=== PATIENT | female | born 1945 | race Caucasian/White ===

== ENCOUNTER 2016-04-08 11:10 | Outpatient (CLI) | payer MEDICARE, OTHER ==
[~2016-04-08] VITALS: Ht 162.6 cm; Wt 88.6 kg
--- NOTE | ~2016-04-08 | HEMODYNAMI ---
PATIENT:BARRIE SMITH MEDICAL RECORD: [id number] : 43 LOCATION:[facility] ADMISSION DATE: 04/08/16 Generatedon:04/08/201613:37 Patient name: BARRIE SMITH Patient #: [id number] SSN: [id number] : 1945 Date of study: 04/08/2016 Page: Of Hemodynamic Procedure Report Patient Data Patient Demographics Procedure consent was obtained First Name: BARRIE Gender: Female Last Name: LUIS : 1945 Middle Initial: W Age: 70 year(s) Patient #: [id number] Race: SSN: [id number] Additional ID: [id number] Contact details Address: [address] [place] [address] State: [place] City: [place] Zip code: [address] Past Medical History Allergies: No known allergies Admission Admission Data Admission Date: 04/08/2016 Admission Time: 11:10 Arrival Date: 04/08/2016 Arrival Time: 13:00 Admit Source: Other Insurance Payor: Medicare Height (in.): 64 BSA: 1.94 (m2) Height (cm.): 162.56 BMI: 33.47 (kg/m2) Weight (lbs.): 195 Weight (kg.): 88.45 Lab Results Lab Result Date: 04/08/2016 Lab Result Time: 0:00 Biochemistry Name Units Result Min Max BUN mg/dl 25 --(----)-* 7 18 Creatinine mg/dl 0.9 --(-*--)-- 0.6 1.3 CBC Name Units Result Min Max Hemoglobin g/dl 14.3 --(*---)-- 13.5 17.5 Procedure Procedure Types Cath Procedure Diagnostic Procedure LHC LH w/Coronaries Procedure Description Procedure Date Procedure Date: 04/08/2016 Procedure Start Time: 13:20 Procedure End Time: 13:33 Procedure Staff Name Function Debi Looney RT Scrub Joao Austin MD Performing Physician Tayla Rubio RN Nurse Levar Cancino RT Monitor Indication Angina Procedure Data Cath Procedure Fluoroscopy Diagnostic fluoroscopy Total fluoroscopy Time: 2.7 time: 2.7 min min Diagnostic fluoroscopy Total fluoroscopy dose: 525 dose: 525 mGy mGy Contrast Material Contrast Material Type Amount (ml) Isovue 370 0 Isovue 300 64 Entry Location Entry Primary Successful Side Size Upsize Upsize Entry Closure Frausto ccessful Closure Location (Fr) 1 (Fr) 2 (Fr) Remarks Device Remarks Radial Right 6 Fr Mechanical artery Short Compression Diagnostic catheters Device Type Used For End Catheter Placement Terumo Optitorque 5Fr LV Angiography Ellis 4.5 catheter Procedure Complications No complications Procedure Medications Medication Administration Route Dosage Oxygen NC 2 l/min Heparin Flush Bag added to field 2 bags (1000units/500ml NS) Lidocaine 2% added to field 20 Radial Cocktail added to field 1 syringe (Verapomil 2mg/Nitro 400mcg/Heparin 1500units) Benadryl I.V. 50 mg Versed I.V. 1 mg Fentanyl I.V. 50 mcg Versed I.V. 1 mg Fentanyl I.V. 50 mcg Radial Cocktail I.A. 1 syringe (Verapomil 2mg/Nitro 400mcg/Heparin 1500units) Hemodynamics Rest BSA: 1.94 (m2) HGB: 14.3 (g/dl) O2 Consumption: Estimated: 185.88 (ml/min) O2 Co nsumption indexed: Estimated:95.81 (ml/min/m) Heart Rate: 80 (bpm) Pressure Samples Time Site Value (mmHg) Purpose Heart Use Rate(bpm) 13:24 LV 80/-24,-13 EDP 86 13:25 AO 63/35(45) Pullback 63 Gradients Valve Time Site Site 2 Mean SEP/DFP Peak To Heart Use 1 (mmHg) (sec/min) Peak Rate (mmHg) (bpm) Aortic 13:25 LV AO 31 18 63 63/35(45) Calculations Valve P-P Mean Valve Index Valve Source Name Gradient Area Flow (cm2) Aortic 31 31 Snapshots Pre Cath Intra NCS Post Cath Vital Signs Time Heart Resp SPO2 NIBP (mmHg) Rhythm Pain Sedation Rate (ipm) (%) Status Level (bpm) 13:08:02 81 19 99 120/73(92) NSR 0 (11) 10(A) , No pain 13:12:12 80 18 98 129/80(103) NSR 0 (11) 10(A) , No pain 13:16:24 80 16 98 120/74(93) NSR 0 (11) 10(A) , No pain 13:20:34 81 16 98 108/64(82) NSR 0 (11) 9(A) , No pain 13:24:27 95 16 98 112/96(107) NSR 0 (11) 9(A) , No pain 13:28:39 80 16 96 93/61(84) NSR 0 (11) 9(A) , No pain 13:32:41 80 16 95 112/67(85) NSR 0 (11) 9(A) , No pain Medications Time Medication Route Dose Verified Delivered Reason Notes Effectiveness by by 13:08:18 Oxygen NC 2 l/min Joao Tayla Per Norman Rubio RN physician 13:08:24 Heparin Flush added 2 bags Joao Joao used for Bag to Norman Austin MD procedure (1000units/500ml field NS) 13:08:31 Lidocaine 2% added 20ml Joao Joao used for to vial Norman Austin MD procedure field 13:08:38 Radial Cocktail added 1 Joao Joao used for (Verapomil to syringe Norman Austin MD procedure 2mg/Nitro field 400mcg/Hepari 13:08:47 Benadryl I.V. 50 mg Joao Tayla Per Norman Rubio RN physician 13:16:10 Versed I.V. 1 mg Joao Tayla for sedation Norman Rubio RN 13:16:16 Fentanyl I.V. 50 mcg Joao Tayla for sedation Norman Rubio RN 13:20:17 Versed I.V. 1 mg Joao Tayla for sedation Norman Rubio RN 13:20:20 Fentanyl I.V. 50 mcg Joao Tayla for sedation Norman Rubio RN 13:22:19 Radial Cocktail I.A. 1 Joao Joao for (Verapomil syringe Norman Austin MD vasodilation 2mg/Nitro 400mcg/Hepari Procedure Log Time Note 12:40:16 Tayla Joanne DAS sent for patient. Start room use. 12:55:46 Arrival Date: 04/08/2016 1:00:00 PM 12:55:52 Insurance Payor : Medicare 12:55:54 Admit Source: Other 12:55:59 Patient Height : 162.56 inches 12:56:17 Patient Weight : 88.45 lbs 12:58:51 Lab Result : Hemoglobin 14.3 g/dl 12:58:51 Lab Result : Creatinine 0.9 mg/dl 12:58:51 Lab Result : BUN 25 mg/dl 12:58:59 Diagnostic Cath Status : Elective 12:59:14 Indication : Angina 12:59:23 Time tracking: Regular hours 12:59:27 Plan of Care:Hemodynamics will remain stable., Cardiac rhythm will remain stable., Comfort level will be maintained., Respiratory function will remain adequate., Patient/ family verbilizes understanding of procedure., Procedure tolerated without complication., Recovers from procedure without complications.. 12:59:32 Warm blankets applied, and oly hugger turned on for patient comfort. 12:59:32 Patient received from Outpatients to [facility] 1 Alert and oriented. Tansferred to table in Supine position. 12:59:33 Correct patient and procedure confirmed by team. 12:59:35 Signed procedure consent form obtained from patient. 12:59:36 ECG and BP/O2 sat monitors applied to patient. 13:06:56 Vital chart was started 13:08:18 Oxygen 2 l/min NC was given by Tayla Rubio RN; Per physician; 13:08:24 Heparin Flush Bag (1000units/500ml NS) 2 bags added to field was given by Joao Austin MD; used for procedure; 13:08:31 Lidocaine 2% 20ml vial added to field was given by Joao Austin MD; used for procedure; 13:08:38 Radial Cocktail (Verapomil 2mg/Nitro 400mcg/Heparin 1500units) 1 syringe added to field was given by Joao uAstin MD; used for procedure; 13:08:47 Benadryl 50 mg I.V. was given by Tayla Rubio RN; Per physician; 13:14:29 Baseline sample Acquired. 13:14:34 Rhythm: sinus rhythm 13:14:35 Full Disclosure recording started 13:14:44 H&P Date Dictated: 03/31/2016 Within 30 days and on chart., H&P Addendum completed by physician on day of procedure. (MUST COMPLETE FOR ALL OUTPATIENTS). 13:14:45 Pre-procedure instructions explained to patient. 13:14:46 Pre-op teaching completed and patient verbalized understanding. 13:14:47 Family in waiting room. 13:14:48 Patient NPO since Midnight. 13:14:54 Patient allergic to No known allergies 13:14:59 Is the patient allergic to Iodine/contrast media? No. 13:15:01 Is patient on blood thinner?No 13:15:08 Patient diabetic? No. 13:15:11 If diabetic: On Metformin? No 13:15:12 ----Pre-sedation anethsthesia assessment.---- 13:15:14 Previous problem with sedation/anesthesia? No ? 13:15:16 Snore? Yes 13:15:18 Sleep apnea? Yes 13:15:19 Deviated septum? No 13:15:21 Opens mouth fully? Yes 13:15:23 Sticks out tongue? Yes 13:15:27 Airway obstruction? No ? 13:15:30 Dentures? No ? 13:15:33 Pre procedure: right dorsailis pedis pulse 1+ Palpable, but thready & weak; easily obliterated 13:15:36 Modified Casey's test Ulnar < 7 seconds 13:15:38 Patient pain scale 0/10 ?. 13:15:43 IV patent on arrival in left forearm with 0.9% NaCl at 10ml/hr. 13:15:46 Lab results completed and on chart. 13:15:49 Right Radial & Right Groin area was prepped with chlora-prep and draped in sterile fashion 13:15:50 Sharps counted by scrub and verified by R.N. 13:15:50 Alarms reviewed by R. N. 13:15:53 Final Timeout: patient, procedure, and site verified with staff and physician. All members of the team are in agreement. 13:15:53 --------ALL STOP TIME OUT------ 13:15:55 Right Radial & Right Groin site verified by team. 13:15:58 Physical assessment completed. ASA score P 2 - A patient with mild systemic disease as per Joao Austin MD. 13:16:04 Sedation plan: IV Moderate Sedation Versed, Fentanyl 13:16:10 Versed 1 mg I.V. was given by Tayla Rubio RN; for sedation; 13:16:12 Use device set Radial Dx 13:16:13 Acist Syringe opened to sterile field. 13:16:14 Terumo 6Fr Slender Glidesheath opened to sterile field. 13:16:14 Bag Decanter opened to sterile field. 13:16:14 Cardinal Cath Pack opened to sterile field. 13:16:15 St Brady 260cm J .035 wire opened to sterile field. 13:16:16 Acist Hand Control opened to sterile field. 13:16:16 Fentanyl 50 mcg I.V. was given by Tayla Rubio RN; for sedation; 13:16:17 Acist Manifold opened to sterile field. 13:16:18 Tegaderm 4 x 4 opened to sterile field. 13:18:24 Zero performed for pressure channel P1 13:19:37 Procedure started. 13:20:17 Versed 1 mg I.V. was given by Tayla Rubio RN; for sedation; 13:20:20 Fentanyl 50 mcg I.V. was given by Tayla Rubio RN; for sedation; 13:20:42 Local anesthetic to right radial artery with Lidocaine 2% by Joao Austin MD.INITIAL ACCESS ONLY 13:20:51 A 6 Fr Short sheath was inserted into the Right Radial artery 13:22:13 A Terumo Optitorque 5Fr Ellis 4.5 catheter was advanced over the wire and used for LV Angiography. 13:22:19 Radial Cocktail (Verapomil 2mg/Nitro 400mcg/Heparin 1500units) 1 syringe I.A. was given by Joao Austin MD; for vasodilation; 13:24:14 LV angiography performed. 13:24:19 LV gram done using DENIS 13:24:20 LV hemodynamics recorded. 13:24:40 EF : 60 % 13:28:21 LCA angiography performed. 13:29:20 RCA angiography performed. 13:30:56 Catheter removed. 13:31:03 Sheath removed intact; hemostasis achieved with Mechanical Compression to the Right Radial artery. 13:31:05 Procedure ended.(Physican Out) 13:31:25 Contrast amount:Isovue 370 0ml. 13:31:27 Contrast amount:Isovue 300 64ml. 13:31:32 Fluoroscopy time 02.70 minutes. 13:31:37 Fluoroscopy dose: 525 mGy 13:31:37 Flurop Dose total: 525 13:31:38 Sharps counted by scrub and verified by R.N. 13:31:40 TR band inflated with 10cc of air. 13:31:41 Insertion/operative site no bleeding no hematoma. 13:31:50 Post right radial artery:stable 13:31:51 Post Procedure Pulses reassessed and unchanged 13:31:56 Post procedure rhythm: sinus rhythm 13:31:57 Post procedure instruction explained to patient.Patient verbalizes understanding. 13:32:21 Procedure and supply charges have been captured, reviewed, submitted and are correct. 13:32:38 Terumo TR Band Standard opened to sterile field. 13:32:45 Procedure Complication : No complications 13:32:47 Vital chart was stopped 13:32:48 See physician's report for complete and final results. 13:32:52 Report given to Post Procedure Room. 13:33:14 Patient transfered to Post Procedure Room with Stretcher. 13:33:16 Full Disclosure recording stopped 13:33:16 Procedure ended. 13:33:22 End room use (Document Last) Device Usage Item Name Manufacture Quantity Catalog Hospital Part Current Minimal Lot# / Number Charge Number Stock Stock Serial# Code Acist Acist 1 69615 616286 409765 745232 20 Syringe [employer] Cardinal Cardinal 1 [id number] 072045 23666 890393 5 Cath Pack Health Bag Microtek 1 2001S 395858 59556 788377 5 [employer] Terumo 6Fr Terumo 1 [id number] 709066 192445 693963 [address] St Brady 1 044010 440158 535085 702765 30 260cm J .035 wire Acist Hand Acist 1 05016 574479 967471 801318 5 Control [employer] Inc Acist Acist 1 86179 814505 020478 417750 5 Manifold [employer] Inc Tegaderm 4 3M 1 [id number] 612285 873634 893987 5 x 4 Terumo Terumo 1 405012 001738 520024 503646 5 Optitorque 5Fr Ellis 4.5 catheter Terumo TR Terumo 1 [id number] 638088 972611 423749 40 Band Standard Signature Audit [place] Stage Time Signature Unsigned Intra-Procedure 04/08/2016 Levar Cancino 1:37:44 PM RT(R) Signatures Monitor : Levar Cancino RT Signature : Date : Time : [facility] [address] [place] [place] [address]
[2016-04-08] MEDS ORDERED: ALEVE220 MG PO (12:09)
[2016-04-08 12:14] LABS: BASOPHILS 0.5 % (0.0-2.0); HEMATOCRIT 43.8 % (36.0-48.0); HEMOGLOBIN 14.3 g/dL (12-16); IMMATURE GRANULOCYTES 0.2 % (0-5); LYMPHOCYTES 16.6 % (15-50); MCH 30.2 pg (26.0-34.0); MCHC 32.6 g/dL (31.0-37.0); MCV 92.6 fL (80.0-100.0); MEAN PLATELET VOLUME 9.1 fL (7.4-10.4); MONOCYTES 7.1 % (2-11); NEUTROPHILS 74.6 % (40-80); PLATELET COUNT 261 10x3/uL (130-400); RBC 4.73 10x6/uL (4.00-5.40); RDW 13.4 % (11.5-14.5); WBC 8.8 10x3/uL (4.8-10.8)
[2016-04-08 12:17] VITALS: BP 127/80; Ht 162.6 cm; Wt 88.6 kg
[2016-04-08 12:26] LABS: ANION GAP 10.8 mmol/L (8-16); CALCIUM 10.1 mg/dL (8.5-10.1); CARBON DIOXIDE 30.7 mmol/L (21.0-32.0); CREATININE - SERUM 0.9 mg/dL (0.6-1.3); POTASSIUM - SERUM 3.5 mmol/L (3.5-5.1)
--- NOTE | 2016-04-08 14:02 | NUR ---
TR BAND TO R/WRIST CDI NO BLEEDING NO HEMATOMA NOTED. VSS WITH HR 76 BP 108/66 CHEST PAIN IS DENIED. NAUSEA IS DENIED WILL MONITOR
--- NOTE | 2016-04-08 14:24 | NUR ---
RESTING QUIETLY WITH NO DISTRESS NOTED VSS TR BAND TO R/WRIST CDI NO BLEEDING NO HEMATOMA NOTED. FAMILY AT BEDSIDE WILL MONITOR
--- NOTE | 2016-04-08 15:05 | NUR ---
SITTING WITH HOB UP 45 DEGREES NO DISTRESS NOTED VSS TR BAND TO R/WRIST CDI FAMILY AT SIDE
--- NOTE | 2016-04-08 15:39 | NUR ---
PIV REMOVED FROM LEFT ARM DRESSING 4 CC AIR REMOVED FROM TR BAND WITH NO BLEEDING NOTED CHEST PAIN DENIED 1550 TR BAND REMOVED WITH DRESSING APPLIED NO BLEEDING NO HEMATOMA NOTED DISCHARGE GONE OVER WITH [facility] AND [facility]
--- NOTE | 2016-04-22 13:15 | OP ---
PATIENT NAME: BARRIE SMITH MEDICAL RECORD: [id number] :43 LOCATION:D.CAT ADMISSION DATE: SURGEON: SHAKEEL CORNELL M.D. DATE OF OPERATION: 04/08/2016 REFERRING PHYSICIAN: Dr. Fuad Rahman at [place], [place]. PROCEDURES PERFORMED: 1. Selective coronary angiography. 2. Left heart catheterization with ventriculogram. INDICATION: A 70-year-old presents with symptoms of accelerating angina. EQUIPMENT USED: A 5-Czech Rayle catheter. TECHNIQUE: A 6-Czech sheath was inserted in retrograde fashion in the right radial artery. Next, selective coronary angiography was performed in standard 5-Czech Rayle catheter. Left heart catheterization was performed using Rayle catheter as well. CORONARY ANATOMY: 1. Left main: Left main trunk is large in caliber. It gives rise to the LAD and circumflex. There is no obstruction. 2. LAD: This is a small caliber vessel, which does not reach the apex. The proximal vessel has a smooth 40% stenosis. The vessel appears to be small, less than 2 mm in diameter. 3. Circumflex: This vessel is large in caliber. It supplies a large lateral branch in the proximal segment. The circumflex and lateral branch are smooth-walled and angiographically normal. 4. Right coronary: This vessel is quite large and dominant. The posterolateral branch in PDA encompass the apex. This vessel is smooth-walled are angiographically normal. 5. Left ventricle: Left ventricle is normal in size and function. No wall motion abnormalities are seen. Estimated ejection fraction is 60%. IMPRESSION: 1. Mild coronary artery disease. 2. Normal left ventricular function. RECOMMENDATIONS: At this point, it would be safer to proceed at her upcoming knee surgery. TRANSINT:[id number] Voice Confirmation ID: [id number] DOCUMENT ID: [id number] SHAKEEL CORNELL M.D. at 1315 CC: [id number] DICTATION DATE: 04/08/16 1336 CUSTOMER LOGISTICS MANAGER: 04/08/161912 DEP CLI 04/08/16 [facility] [address] [id number]
== END 2016-04-08 15:43 | disposition home or self-care (01) ==
LOC: D.CATH 11:10
PROVIDERS: Internal Medicine Cardiovascular Disease
DX: I20.9 Angina pectoris, unspecified (principal); R94.31 Abnormal electrocardiogram [ECG] [EKG]; Z82.49 Family history of ischemic heart disease and other diseases of the circulatory system; R06.00 Dyspnea, unspecified